=== PATIENT | female | born 1995 | race Two or more races ===

== ENCOUNTER 2017-10-01 12:46 | Emergency (ER) | payer OTHER ==
[~2017-10-01] VITALS: Ht 154.9 cm; Wt 54.5 kg
[2017-10-01] MEDS ORDERED: IBUPROFEN 600 MG TABLET PO ONE (13:45)
[2017-10-01 14:32] VITALS: BP 110/63
== END 2017-10-01 15:03 | disposition home or self-care (01) ==
LOC: EMS 12:49
DX: S93.402A Sprain of unspecified ligament of left ankle, initial encounter (principal); X50.1XXA Overexertion from prolonged static or awkward postures, initial encounter; Y93.51 Activity, roller skating (inline) and skateboarding; Y92.89 Other specified places as the place of occurrence of the external cause; Y99.8 Other external cause status
CPT/HCPCS: 99284